=== PATIENT | female | born 2005 | race Caucasian/White ===

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

== ENCOUNTER 2023-11-04 12:52 | Emergency (ER) | payer OTHER ==
[2023-11-04 13:47] LABS: Absolute Eosinophils 0.1 K/uL (0-0.5); Absolute Lymphocytes (CBC) 2.2 K/uL (0.7-4.9); Absolute Monocytes 0.5 K/uL (0.1-1.3); Absolute Neutrophil 3.9 K/uL (1.8-8.0); Basophils % 0.7 % (0-1.3); Eosinophils % 1.2 % (0-4.4); Hematocrit 41.1 % (36.0-45.0); Hemoglobin 13.7 g/dL (12.0-15.0); Lymphocytes % 32.8 % (15.3-44.8); MCH 29.6 pg (27.0-35.0); MCHC 33.4 g/dL (32.0-36.0); MCV 88.4 fL (80-100); MPV 8.8 fL (7.6-11.3); Neutrophils % 57.3 % (41.7-73.7); Platelets 253 thou/uL (152-406); RBC Red Blood Cell Count 4.65 M/uL (3.86-4.86); Red Cell Distribution Width 13.3 % (12.1-15.2)
[2023-11-04 13:49] LABS: Specific Gravity 1.014 (1.005-1.030); Urine Bilirubin NEGATIVE (Negative); Urine Blood Negative (Negative); Urine Clarity Clear (Clear); Urine Color Light-Yellow (Yellow); Urine Glucose NEGATIVE (Negative); Urine Ketones NEGATIVE (Negative); Urine Microscopic Reflex YN NO UMIC; Urine Nitrite NEGATIVE (Negative); Urine Protein NEGATIVE (Negative); Urine Urobilinogen Normal (Normal); Urine pH 7.5 (5.0-7.0)
[2023-11-04 14:05] LABS: Anion Gap 6.9 mEq/L (5.0-15.0); BUN Blood Urea Nitrogen 7 mg/dL (7-18); Bicarbonate 27 mEq/L (21-32); Glomerular Filtration Rate 128 ml/min (=/>90); Glucose Level 92 mg/dL (74-106); HCG, Quantitative < 1 mIU/mL (1-3); Potassium 3.9 mEq/L (3.5-5.1); Sodium Level 139 mEq/L (136-145)
[2023-11-04] MEDS ORDERED: KETOROLAC 30 MG/ML INJ ONE (14:53)
--- NOTE | 2023-11-04 16:35 | RAD REPORT ---
EXAM DESCRIPTION: US - Transvaginal Study Probe - 11/04/2023 2:21 pm CLINICAL HISTORY: VAGINAL BLEEDING COMPARISON: Transvaginal Study Probe dated 05/26/2023 TECHNIQUE: Sonographic grayscale and color flow images of the pelvis were obtained. FINDINGS: The uterus is normal in size, with normal myometrial echotexture. Uterus is retroverted. T he uterus measures 6 cm in length. The endometrial stripe measures 8mm, normal. Both ovaries are normal in size, shape and echotexture. The right ovary measures 2.6 x 1.4 x 1.9 cm. The left ovary measures 2.1 x 1.1 x 1.0 cm. Questionable region of hypoechogenicity in the right pa rovarian region, favored to relate to bowel rather than a cystic lesion. Normal Doppler blood flow was demonstrated to both ovaries. Mild free pelvic fluid, likely physiologic. IMPRESSION: Retroverted uterus. Mild free pelvic fluid, likely physiologic. Questionable region of hypoechogenicity in the right parovarian region, favored to relate to bowel ra ther than a cystic lesion. A follow-up ultrasound in 6-10 weeks would be helpful to re-evaluate the f inding.
--- NOTE | 2023-11-04 17:00 | ER ---
Nurse's Notes [facility] Name: Savannah Jackson Age: 18 yrs Sex: Female : 2005 Arrival Date: 11/04/2023 Time: 12:52 Bed 12 Private MD: Diagnosis: Abnormal uterine and vaginal bleeding, unspecified Presentation: 11/03 13:02 Chief complaint: Patient states: Pt c/o intermittent heavy vaginal bleeding and tl4 stabbing lower abdominal pain since last Tuesday. Pt takes BCP consistently and as prescribed. Pt states she soaks super size tampon x 1 per hour. Pt states normal menstrual period lasts 5 days max. Coronavirus screen: At this time, the client does not indicate any symptoms associated with coronavirus-19. Ebola Screen: No symptoms or risks identified at this time. Initial Sepsis Screen: Does the patient meet any 2 criteria? No. Patient's initial sepsis screen is negative. Does the patient have a suspected source of infection? No. Patient's initial sepsis screen is negative. Risk Assessment: Do you want to hurt yourself or someone else? Patient reports no desire to harm self or others. Onset of symptoms was October 26, 2023. 13:02 Method Of Arrival: Ambulatory tl4 13:02 Acuity: YOKO 3 tl4 Triage Assessment: 13:08 General: Appears in no apparent distress. Behavior is calm, cooperative. Pain: tl4 Complains of pain in right lower quadrant and left lower quadrant Quality of pain is described as stabbing, Is intermittent. EENT: No signs and/or symptoms were reported regarding the EENT system. Neuro: Level of Consciousness is awake, alert, obeys commands, Oriented to person, place, time, situation, Moves all extremities. Full function Gait is steady, Speech is normal, Facial symmetry appears normal. Cardiovascular: Capillary refill < 3 seconds Patient's skin is warm and dry. Respiratory: Airway is patent Respiratory effort is even, unlabored, Respiratory pattern is regular, symmetrical. GI: No signs and/or symptoms were reported involving the gastrointestinal system. : Reports vaginal bleeding that is heavy flow since 10/26/2023. Derm: No signs and/or symptoms reported regarding the dermatologic system. Musculoskeletal: No signs and/or symptoms reported regarding the musculoskeletal system. 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 - Infectious Disease History:: Denies. - Social history:: Smoking status: Reported history of juuling and/or vaping. Screenin:42 [facility] ED Fall Risk Assessment (Adult) History of falling in the last 3 months, le1 including since admission No falls in past 3 months (0 pts) Confusion or Disorientation No (0 pts) Intoxicated or Sedated No (0 pts) Impaired Gait No (0 pts) Mobility Assist Device Used No (0 pt) Altered Elimination No (0 pt) Score/Fall Risk Level 0 - 2 = Low Risk Oriented to surroundings, Maintained a safe environment, Educated pt \T\ family on fall prevention, incl call for assistance when getting out of bed, Assessed \T\ reinforced patient's understanding of fall precautions, Hourly rounding (assess needs \T\ fall precautionary measures) done. Abuse screen: Denies threats or abuse. Denies injuries from another. Nutritional screening: No deficits noted. Tuberculosis screening: No symptoms or risk factors identified. Assessment: 13:42 General: Appears in no apparent distress. comfortable, Behavior is calm, cooperative. le1 Pain: Complains of pain in abdomen and pelvis Pain currently is 7 out of 10 on a pain scale. Quality of pain is described as aching. Neuro: No deficits noted. Cardiovascular: No deficits noted. Respiratory: No deficits noted. GI: No deficits noted. : Reports vaginal bleeding that is heavy flow. Vital Signs: 13:02 BP 126 / 80; Pulse 93; Resp 16; Temp 97.4(O); Pulse Ox 99% on R/A; Weight 65.77 kg; tl4 Height 5 ft. 3 in. ; Pain 6/10; 13:43 BP 121 / 75; Pulse 94; Resp 16; Temp 98.6; Pulse Ox 100% on R/A; Pain 7/10; le1 17:16 BP 107 / 61; Pulse 86; Resp 16; Temp 98.6; Pulse Ox 100% on R/A; Pain 0/10; le1 13:02 Body Mass Index 25.69 (65.77 kg, 160.02 cm) - Percentile 81.8 % tl4 13:02 Pain Scale: Adult tl4 13:43 Pain Scale: Adult le1 17:16 Pain Scale: Adult le1 ED Course: 12:56 Patient arrived in ED. mg5 13:07 Javier Varner DO is Attending Physician. ms3 13:08 Triage completed. tl4 13:08 Rojelio Peña PA is PHCP. ms3 13:12 Arm band placed on right wrist. tl4 13:21 Dino Lizarraga, MISTY is Primary Nurse. le1 13:43 Patient has correct armband on for positive identification. Placed in gown. Bed in low le1 position. Call light in reach. Adult w/ patient. Provided Education on: Informed to use call light if needed. 13:44 Urine collected: clean catch specimen, clear. Inserted saline lock: 20 gauge in left le1 antecubital area, using aseptic technique. Blood collected. Flushed with 10 mL NS. 14:23 US Transvaginal Study (Probe) In Process Unspecified. EDMS 16:59 Elodia Salazar MD is Referral Physician. cp 17:17 No provider procedures requiring assistance completed. IV discontinued, intact, le1 bleeding controlled, No redness/swelling at site. Pressure dressing applied. Administered Medications: 15:00 Drug: Ketorolac IVP 15 mg IVP once Route: IVP; Site: left antecubital; le1 15:23 Follow up: Response: No adverse reaction; Pain is decreased le1 Medication: 13:43 VIS not applicable for this client. le1 Outcome: 16:59 Discharge ordered by MD. cp 17:17 Discharged to home ambulatory, le1 17:17 Condition: improved 17:17 Discharge instructions given to patient, Instructed on discharge instructions, follow up and referral plans. medication usage, Demonstrated understanding of instructions, follow-up care, medications, Prescriptions given X 1, 17:17 Patient left the ED. le1 Signatures: Dispatcher [employer] EDMI Rojelio Peña PA PA cp Sims, Marcus, DO DO ms3 Suzie Worthington mg5 Rogerio Rock RN RN tl4 Dino Lizarraga, RN RN le1
--- NOTE | 2023-11-04 17:00 | EDPHYS ---
Physician Documentation [facility] Name: Savannah Jackson Age: 18 yrs Sex: Female : 2005 Arrival Date: 11/04/2023 Time: 12:52 Bed 12 Private MD: ED Physician Javier Varner HPI: 11/03 13:15 This 18 yrs old Female presents to ER via Ambulatory with complaints of Vaginal cp Bleeding. 13:15 The patient presents with vaginal bleeding that is heavy. Onset: The symptoms/episode cp began/occurred 1 week(s) ago. The patient's method of control includes BCP. 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 - Infectious Disease History:: Denies. - Social history:: Smoking status: Reported history of juuling and/or vaping. ROS: 13:20 : Positive for vaginal bleeding, Negative for urinary symptoms, cp 13:20 Eyes: Negative for injury, pain, redness, and discharge, cp 13:20 Constitutional: Negative for body aches, chills, fever, poor PO intake, 13:20 ENT: Negative for drainage from ear(s), ear pain, sore throat, difficulty swallowing, difficulty handling secretions, 13:20 Cardiovascular: Negative for chest pain, edema, palpitations, 13:20 Respiratory: Negative for cough, shortness of breath, wheezing, 13:20 Abdomen/GI: Positive for abdominal pain, Negative for vomiting, diarrhea, constipation, 13:20 Neuro: Negative for altered mental status, dizziness, headache, syncope, weakness, 13:20 All other systems are negative, Exam: 13:25 Constitutional: The patient appears in no acute distress, alert, awake, non-toxic, well cp developed, well nourished, 13:25 Head/Face: Normocephalic, atraumatic. cp 13:25 Eyes: Periorbital structures: appear normal, Conjunctiva: normal, no exudate, no injection, Sclera: no appreciated abnormality, Lids and lashes: appear normal, bilaterally, 13:25 ENT: External ear(s): are unremarkable, Nose: is normal, Mouth: Lips: moist, Oral mucosa: pink and intact, moist, Posterior pharynx: Airway: no evidence of obstruction, patent, 13:25 Chest/axilla: Inspection: normal, 13:25 Cardiovascular: Rate: normal, Rhythm: regular, 13:25 Respiratory: the patient does not display signs of respiratory distress, Respirations: normal, no use of accessory muscles, no retractions, labored breathing, is not present, Breath sounds: are clear throughout, no decreased breath sounds, no stridor, no wheezing, 13:25 Abdomen/GI: Inspection: abdomen appears normal, Palpation: soft, in all quadrants, mild abdominal tenderness, in the right lower quadrant and left lower quadrant, 13:25 Back: CVA tenderness, is absent, 13:25 Neuro: Orientation: to person, place \T\ time. Mentation: is normal, Vital Signs: 13:02 BP 126 / 80; Pulse 93; Resp 16; Temp 97.4(O); Pulse Ox 99% on R/A; Weight 65.77 kg; tl4 Height 5 ft. 3 in. ; Pain 6/10; 13:43 BP 121 / 75; Pulse 94; Resp 16; Temp 98.6; Pulse Ox 100% on R/A; Pain 7/10; le1 17:16 BP 107 / 61; Pulse 86; Resp 16; Temp 98.6; Pulse Ox 100% on R/A; Pain 0/10; le1 13:02 Body Mass Index 25.69 (65.77 kg, 160.02 cm) - Percentile 81.8 % tl4 13:02 Pain Scale: Adult tl4 13:43 Pain Scale: Adult le1 17:16 Pain Scale: Adult le1 MDM: 16:59 Patient medically screened. cp 16:59 Data reviewed: vital signs, nurses notes, lab test result(s), radiologic studies, cp ultrasound. 16:59 Differential diagnosis: ectopic , malignancy, molar preganancy, ovarian cyst, cp pelvic inflammatory disease, urinary tract infection, vaginosis. I considered the following discharge prescriptions or medication management in the emergency department Medications were administered in the Emergency Department. See MAR. Counseling: I had a detailed discussion with the patient and/or guardian regarding the historical points, exam findings, and any diagnostic results supporting the discharge/admit diagnosis, lab results, radiology results, the need for outpatient follow up, an OB/Gyne specialist, to return to the emergency department if symptoms worsen or persist or if there are any questions or concerns that arise at home. Response to treatment: the patient's symptoms have mildly improved after treatment, and as a result, I will discharge patient. 11/03 13:11 Order name: Abo/rh Typing; Complete Time: 16:43 11/03 13:11 Order name: Basic Metabolic Panel; Complete Time: 14:31 11/03 14:31 Interpretation: Normal except: CL 109. 11/03 13:11 Order name: CBC with Diff; Complete Time: 14:31 11/03 14:32 Interpretation: Reviewed. 11/03 13:11 Order name: Test, Urine; Complete Time: 13:54 11/03 13:54 Interpretation: Reviewed. 11/03 13:11 Order name: Quantitative Hcg; Complete Time: 14:31 11/03 13:11 Order name: Urinalysis w/ reflexes; Complete Time: 13:54 11/03 13:55 Order name: US Transvaginal Study (Probe); Complete Time: 16:43 cp 11/03 16:44 Interpretation: Reviewed report. 11/03 13:11 Order name: IV Saline Lock; Complete Time: 13:52 11/03 13:11 Order name: Labs collected and sent; Complete Time: 13:52 11/03 13:11 Order name: NPO; Complete Time: 13:21 cp Administered Medications: 15:00 Drug: Ketorolac IVP 15 mg IVP once Route: IVP; Site: left antecubital; le1 15:23 Follow up: Response: No adverse reaction; Pain is decreased le1 Disposition: 17:10 I was immediately available on-site in the Emergency Department for consultation in the ms3 care of the patient. Disposition Summary: 11/04/23 16:59 Discharge Ordered Notes: Location: Home cp Problem: new cp Symptoms: have improved cp Condition: Stable cp Diagnosis - Abnormal uterine and vaginal bleeding, unspecified cp Followup: cp - With: Elodia Salazar MD - When: 2 - 3 days - Reason: Recheck today's complaints Discharge Instructions: - Discharge Summary Sheet cp - Abnormal Uterine Bleeding cp Forms: - Medication Reconciliation Form cp - Antibiotic Education cp - Prescription Opioid Use cp - Patient Portal Instructions cp - Leadership Thank You Letter cp Prescriptions: - Anaprox DS 550 mg Oral Tablet - take 1 tablet ORAL route every 12 hours As needed; 20 tablet; Refills: 0, cp Product Selection Permitted Signatures: Dispatcher [employer] EDMS Rojelio Peña PA PA cp Sims, Marcus, DO DO ms3 Rogerio Rock RN RN tl4 Dino Lizarraga RN RN le1 Corrections: (The following items were deleted from the chart) 13:12 13:12 ABO/RH TYPING+BB.LAB.BRZ ordered. EDMS EDMS 13:12 13:12 BASIC METABOLIC PANEL+C.LAB.BRZ ordered. EDMS EDMS 13:12 13:12 CBC+H.LAB.BRZ ordered. EDMS EDMS 13:12 13:12 Test, Urine+UC.LAB.BRZ ordered. EDMS EDMS 13:12 13:12 QUANTITATIVE HCG+C.LAB.BRZ ordered. EDMS EDMS 13:12 13:12 Urinalysis+U.LAB.BRZ ordered. EDMS EDMS 13:55 13:55 Transvaginal Study (Probe)+US.RAD.BRZ ordered. EDMS EDMS
[2023-11-04 17:33] VITALS: TEMP 98.6; O2SAT 100
[2023-11-04 17:39] VITALS: BP 107/61
--- OUTSIDE RECORDS SUMMARY | 2023-11-07 08:41 | XMS REPORT | Continuity of Care Document ---
Author Name Unknown Address [address] [facility] [address] [place] [address] [facility] thconnect Address [address] [address] [address] [place] [address] Care Team Providers Care Instructional Facilitator Name Role Phone Pcp, Patient Does Not Have A Primary Care Physic marika BOB ALONSO Attending Clinician BOB Lema Attending Clinician Aziza avitia [email or web address]_S Attending Clinician Aziza Cornell MD, Annetta Thompson Attending Clinician Doctor Unassigned, [place] Attending Clinician U navailable [email or web address]_S Admitting Clinician Aziza avitia Payers Payer Name Policy Type Policy Number Effective Date Expirati on Date Source [facility] [id number] 2022 00:00:00 [facility] [id number] Problems Condition Name Condition Details Condition Category Status Onset Date Resolution Date Last Treatment Date Treating Clinician Comments Source Left ovarian cyst Left ovarian cyst Disease Active 07-25 00:00: 00 [facility] Oral contracept ion initiation Oral contracept ion initiation Disease Active 07-25 00:00: 00 [facility] Allergies, Adverse Reactions, Alerts Allergy Name Allergy Type Status Severity Reaction(s) Onset Date Inactive Date Treating Clinician Comments Source NO KNOWN ALLERGIE S Drug Class Active [facility] Social History Social Habit Start Date Stop Date Quantity Comments Source History of tobacco use Passive smoker [facility] Gender [facility] Sexual orientation [facility] History of Social function 2022-12-08 00:00:00 2022-12-08 00:00:00 [facility] Alcoholic beverage intake 2022-12-08 00:00:00 2022-12-08 00:00:00 Lifetime non-drinker (finding) [facility] Alcohol intake 2022-12-08 00:00:00 2022-12-08 00:00:00 Lifetime non-drinker (finding) [facility] Tobacco use and exposure 2022-07-12 00:00:00 2022-07-12 00:00:00 Smokeless tobacco non-user [facility] Sex assigned at 2005 00:00:00 2005 00:00:00 [facility] Smoking Status Start Date Stop Date Source Never Smoker [facility] Medications Ordered Medication Name Filled Medication Name Start Date Stop Date Current Medication? Ordering Clinician Indication Dosage Frequency Signature (SIG) Comments Components Source LOESTRIN FE (LOESTRIN FE /) 1 mg-20 mcg (21)/75 mg (7) tablet 12-08 00:00: 00 Yes [id number] 1{tbl} Take 1 tablet by mouth in the morning. [facility] ibuprofen 600 mg tablet 07-12 00:00: 00 Yes [id number] 600mg Take 1 tablet by mouth every 6 (six) hours as needed for Pain (scale 4-6). [facility] LOESTRIN FE (LOESTRIN FE /) 1 mg-20 mcg (21)/75 mg (7) tablet 07-12 00:00: 00 12-08 00:00 :00 No [id number] 1{tbl} Take 1 tablet by mouth in the morning. [facility] atomoxetine 40 mg capsule 06-19 00:00: 00 Yes TAKE ONE (1) CAPSULE(S) BY MOUTH DAILY IN THE MORNING. [facility] amoxicillin 400 mg/5 mL suspension 06-15 00:00: 00 Yes Take 2 tsp po bid for 10 days [facility] naproxen 500 mg tablet Take 1 tablet twice a day by oral route as needed for 15 days. naproxen 500 mg tablet Take 1 tablet twice a day by oral route as needed for 15 days. No 1 BID naproxen 500 mg tablet Take 1 tablet twice a day by oral route as needed for 15 days[facility] Mckenzie Fe 1/20 (28) 1 mg-20 mcg (21)/75 mg (7) tablet TAKE ONE (1) TABLET BY MOUTH IN THE MORNING. Mckenzie Fe 1/20 (28) 1 mg-20 mcg (21)/75 mg (7) tablet TAKE ONE (1) TABLET BY MOUTH IN THE MORNING. No Mckenzie Fe 1/20 (28) 1 mg-20 mcg (21)/75 mg (7) tablet TAKE ONE (1) TABLET BY MOUTH IN THE MORNING. [facility] Vital Signs Vital Name Observation Time Observation Value Comments S ource BP Diastolic 2023-07-19 00:00:00 68 mm[Hg] [facility] Body Weight 2023-07-19 00:00:00 136 [lb_av] [facility] BMI (Body Mass Index) 2023-07-19 00:00:00 24.1 kg/m2 [facility] Systolic 2023-07-19 00:00:00 106 mm[Hg] [facility] Height 2023-07-19 00:00:00 63 [in_i] [facility] BP Diastolic 2023-05-26 00:00:00 85 mm[Hg] [facility] Height 2023-05-26 00:00:00 63 [in_i] [facility] BP Systolic 2023-05-26 00:00:00 120 mm[Hg] [facility] Systolic blood pressure 2022-12-08 13:58:00 107 mm[Hg] [facility] Diastolic blood pressure 2022-12-08 13:58:00 68 mm[Hg] [facility] Heart rate 2022-12-08 13:58:00 82 /min [facility] Respiratory rate 2022-12-08 13:58:00 18 /min [facility] Body height 2022-12-08 13:58:00 160 cm [facility] Body weight 2022-12-08 13:58:00 55.792 kg [facility] BMI 2022-12-08 13:58:00 21.79 kg/m2 [facility] Systolic blood pressure 2022-07-12 18:51:00 120 mm[Hg] [facility] Diastolic blood pressure 2022-07-12 18:51:00 82 mm[Hg] [facility] Heart rate 2022-07-12 18:51:00 82 /min [facility] Respiratory rate 2022-07-12 18:51:00 18 /min [facility] Body height 2022-07-12 18:51:00 160 cm [facility] Body weight 2022-07-12 18:51:00 57.153 kg [facility] BMI 2022-07-12 18:51:00 22.32 kg/m2 [facility] Body mass index (BMI) [Percentile] Per age and sex 2022-07-12 18:51:00 59.81 % [facility] Procedures Procedure Date / Time Performed Performing Clinician Source US, pelvis, transabdominal + transvaginal 2023-05-26 00:00:00 [facility] ASSIGNMENT OF BENEFITS 2022-12-08 13:50:08 Docto r Unassigned, [place] [facility] Plan of Care Planned Activity Planned Date Details Comments Source Future Appointment 2024-07-18 10:00:00 Suzie arenas, [address] [place] [address] S; [facility] [address], [place] [address] [facility] Encounters Start Date/Time End Date/Time Encounter Type Admission Type Attending Clinicians Care Facility Care Department Encounter ID Source 2023-12-13 09:30:00 2023-12-13 09:30:00 Outpatient R BOB ALONSO CHERYAL [facility] [id number] [facility] 2023-10-01 00:00:00 2023-10-01 00:00:00 Refill Bob Alonso [facility] [id number] [facility] 2023-09-19 00:00:00 2023-09-19 14:41:03 Bob Moreno [facility] [id number] [id number] [facility] 2023-07-19 00:00:00 2023-07-19 00:00:00 LAUREL Croft: [address], [address], [place] [address] , Ph. [facility] - GC_GCBZW_Gricel james [place]* [id number] [facility] 2023-06-16 00:00:00 2023-06-16 00:00:00 Outpatient GC_GCBZW_Ka diyala_S [facility] [id number] [facility] 2023-05-26 00:00:00 2023-05-26 00:00:00 Outpatient GC_GCBZW_Ka diyala_S [facility] [id number] [facility] 2023-05-26 00:00:00 2023-05-26 00:00:00 LAUREL Croft: [address], [address], [place] [address] , Ph. [facility] - GC_GCBZW_Gricel james [place]* [id number] [facility] 2023-05-25 00:00:00 2023-05-25 00:00:00 Outpatient GC_GCBZW_Ka diyala_S [facility] [id number] [facility] 2023-05-25 00:00:00 2023-05-25 00:00:00 Telephone Annetta Cornell [facility] [id number] [id number] [id number] [facility] 2022-12-08 09:00:00 2022-12-08 09:08:09 Outpatient R REJIBOB ESQUIVEL [facility] [id number] [facility] 2022-12-08 09:00:00 2022-12-08 09:08:09 Office [address]Bob esquivel [facility] [id number] [id number] [id number] [facility] 2022-12-08 00:00:00 2022-12-08 00:00:00 Orders Only Doctor Unassigned, [place] [facility] 1..114 350.1.13.10 [id number] [id number] [facility] 2022-12-07 09:30:00 2022-12-07 09:30:00 Outpatient R REJIBOB ESQUIVEL CHERYAL [facility] [id number] [facility] 2022-11-26 00:00:00 2022-11-26 00:00:[address] [facility] [id number] [id number] [id number] [id number] [facility] 2022-07-12 13:00:00 2022-07-12 14:12:48 Outpatient R REJIBOB ESQUIVEL REJIBOB ESQUIVEL [facility] [id number] [facility] 2022-07-12 13:00:00 2022-07-12 14:12:48 Office Visit JeanethBob rajput [facility] [id number] [id number] [id number] [id number] [facility] 2022-07-12 13:00:00 2022-07-12 13:00:00 Outpatient R BOB ALONSO CHERYAL [facility] [id number] [facility] Results Test Description Test Time Test Comments Results Result Co mments Source [facility] Notes Date/Time Note Provider Source 2023-10-05 09:49:14 Attempted to contact patient. No answer, VM left. Matty Moses RN 10/05/2023 9:49 AM T Matty Moses RN [facility] 2023-10-04 09:14:01 Attempted to contact patient. No answer, VM left. Matty Moses RN 10/04/2023 9:14 AM [facility] 2023-10-03 10:05:25 Patient needs WWE. Attempted to contact patient. No answer, VM left. Matty Moses RN 10/03/2023 10:05 AM [facility] 2023-05-25 14:51:31 Spoke with patient and mother per consent, wanting to know what past 2 office visits noted for treatment. Patients mother stated patient has not taken BC pills 3 days ago that were given prior for hx of ovarian cyst/pain. Patient states that she started having pain in lower abd like prior now since stopping BC pills. Advised patient and mother that with stopping the BC her body can have irregular cycles and cramping. Informed patient she can take ibuprofen and use heating pad for pain and restart the BC pills if she hasn't been sexually active recently if she is sexually active. Patient and mother made aware that she (patient) can become with the first pack with restarting BC if sexually active to use protection. Patient going to restart BC, monitor pain, if pain continues or no improvement after restarting BC pills to give office a call to be seen. Amarilys Watson RN 05/25/2023 2:58 PM [facility] [employer] [employer] Amarilys Watson RN [facility] 2023-05-25 14:13:47 Attempted to contact patient by phone, no answer, message left on voicemail to call back. Amarilys Watson RN 05/25/2023 2:13 PM [facility] 2023-05-25 12:31:46 Mom and patient are calling they want to review the office visit note with a nurse from November since she still having issues with cramps they want to know what the provider noted that day. [employer] Nathaly Daniel [facility] 2022-12-01 10:47:54 Formatting of this n ote might be different from the original. Attempted to contact patient. No answer, VM left. Patient needs f/u appointment. Matty Moses RN 12/01/2022 10:48 AM Matty Moses RN [facility] 2022-11-26 11:36:02 Formatting of this n ote might be different from the original. Pt last seen by DEREK White on 07/12/22 and it was advised that pt follow up in 12 weeks. Attempted to reach pt by phone to schedule an appt, no answer, message left for call to be returned to the office. ressa Petersen RN [facility]
== END 2023-11-04 17:17 | disposition home or self-care (01) ==
LOC: ER 12:52
DX: N93.9 Abnormal uterine and vaginal bleeding, unspecified (principal)
CPT/HCPCS: 36415; 76830; 80048; 81003; 81025; 84702; 85025; 86900; 86901; 96374; 99284

== ENCOUNTER → 2024-08-06 | Day surgery (SDC) | payer OTHER ==
--- NOTE | 2024-08-06 15:09 | RAD REPORT ---
Exam: US Breast Core BX w/US Guidance CLINICAL HISTORY: RT breast mass TECHNIQUE: The risks, benefits and alternatives to procedure were explained to the patient and informed consent was obtained. Prior ultrasound dated 07/26/2024 was reviewed. Timeout procedure was performed. Skin of the right breast lateral to the nipple was prepped and draped in the usual sterile fashion. S kin and deeper tissues were anesthetized with lidocaine. Under sonographic guidance 2 14-gauge vacuum-assisted core biopsies of the breast mass were obtained. The specimens were sent to pathology for analysis. Subsequently a localizing clip was placed into the mass. During the second sample and insertion of th e localization clip, moderate perilesional nonlocalized hematoma formation was noted. Prolonged manual compression was applied at and around the biopsy site. Subsequent to the procedure, the area w as dressed with a compression bandage. Patient experienced no other immediate complication. IMPRESSION: Technically successful ultrasound-guided core biopsy of the right breast. Moderate perilesional nonlocalized hematoma formation was noted towards the end of the procedure. Thi s was managed by prolonged manual compression, and subsequent application of a compression bandage.
== END ==
LOC: DS 09:40
PROVIDERS: ATTEND Physician Assistant
DX: D24.1 Benign neoplasm of right breast (principal)
CPT/HCPCS: 19083; 88305